=== PATIENT | male | born 1995 | race African-American/Black ===

== ENCOUNTER 2017-05-01 14:21 | Emergency (ER) | payer OTHER ==
[~2017-05-01] VITALS: Ht 188 cm; Wt 93.9 kg
[~2017-05-01 14:21] MED LIST: FLEXERIL10 MG PO; HYDROCODONE/APA1 TA1 PO
[2017-05-01 14:25] VITALS: BP 165/81
--- NOTE | 2017-05-01 14:44 | ED GENERAL ADULT ---
History of Present Illness General Chief Complaint: General Adult Stated Complaint: BONE IN CHEST ?STICKING OUT Source: patient, old records Exam Limitations: no limitations Vital Signs & Intake/Output Vital Signs & Intake/Output Vital Signs Date Time Temp Pulse Resp B/P B/P Pulse O2 O2 Flow FiO2 Mean Ox Delivery Rate 05/01 1425 98.5 96 18 165/81 97 Room Air Allergies Coded Allergies: NO KNOWN ALLERGIES (04/03/11) Reconcile Medications No Known Home Medications Triage Note: PT STATES HIS BREAST BONE STICKS OUT AND IT HURTS WHEN HE BREATHS. Triage Nurses Notes Reviewed? yes Onset: Gradual Duration: day(s): Timing: remote history Severity: moderate Modifying Factors: Worsens With: other (deep inspiration). HPI: 21-year-old male presents to emergency department complaining of any protrusion of his chest. Patient has had this chronically since childhood however for the past 3 days he notes increasing pain with inspiration. He has never seen a specialist for this. He does not that he has had x-rays and was told that this is "normal". He states that when he looses weight the protrusion becomes more prominent. He has never seen a specialist for this chronic issue. He also states that when he lifts weights and puts pressure on his chest it can be very uncomfortable for him. He denies fevers, chills, cough, hemoptysis, palpitations, recent illness. (QI KIRAN PA-C) Past History Travel History Traveled to [place] past 21 day No Medical History Any Pertinent Medical History? none Neurological: NONE EENT: NONE Cardiovascular: NONE Respiratory: NONE Gastrointestinal: NONE Hepatic: NONE Renal: NONE Musculoskeletal: NONE Psychiatric: NONE Endocrine: NONE Surgical History Surgical History: non-contributory Psychosocial History What is your primary language Divehi Tobacco Use: Never used ETOH Use: occasional use Illicit Drug Use: denies illicit drug use Family History Hx Contributory? No (QI KIRAN PA-C) Review of Systems Review of Systems Constitutional: Reports: no symptoms. EENTM: Reports: no symptoms. Respiratory: Reports: see HPI. Cardiovascular: Reports: no symptoms. GI: Reports: no symptoms. Genitourinary: Reports: no symptoms. Musculoskeletal: Reports: see HPI. Skin: Reports: no symptoms. Neurological/Psychological: Reports: no symptoms. Hematologic/Endocrine: Reports: no symptoms. Immunologic/Allergic: Reports: no symptoms. All Other Systems: Reviewed and Negative (QIANA TRAN,QI) Physical Exam Physical Exam General Appearance: well developed/nourished, no apparent distress, alert, awake Head: atraumatic, normal appearance Eyes: Bilateral: normal appearance. Ears, Nose, Throat: hearing grossly normal Neck: normal inspection, supple, full range of motion Respiratory: normal breath sounds, no respiratory distress, lungs clear, pectus carinatum present, tenderness to sternum with palpation Cardiovascular: regular rate/rhythm Back: normal inspection, normal range of motion, no vertebral tenderness Extremities: normal inspection, normal range of motion Neurologic/Psych: awake, alert, oriented x 3 Skin: intact, normal color, warm/dry Core Measures ACS in differential dx? No CVA/TIA Diagnosis: No Severe Sepsis Present: No Septic Shock Present: No (QI KIRAN PA-C) Progress Differential Diagnoses I considered the following diagnoses in my evaluation of the patient: [Sternum fracture, chostocondritis, rib fracture, pericarditis] Plan of Care: Pectus carinatum present on physical exam, this is been present for as long as patient can't remember, this is a chronic issue for this patient. Old records reviewed. The patient has never seen a specialist regarding this condition. He currently does not complain of any dyspnea or pain with deep inspiration, he complains of no chest pain. He is not hypoxic. He is requesting a note to return to work. The patient was given a referral for a cardiothoracic surgeon to further assess his chronic condition. He states he will call to make an appointment. He will return with any worsening symptoms or concerns. The patient is in agreement with the plan of care. The patient was discussed with Dr. Yu. Initial ED EKG: none (QIANA TRAN,QI) Departure Departure Disposition: HOME OR SELF CARE Condition: Stable Clinical Impression Primary Impression: Pectus carinatum Secondary Impressions: Sternum pain Referrals: IGNACIO ROE,PELON GAMA (PCP/Family) Additional Instructions: As discussed Follow-up with cardiothoracic surgeon, Dr. Mcdonough, to discuss options regarding your sternum, call to make an appointment. Return with any worsening symptoms or concerns including shortness of breath, chest pain, abdominal pain. Departure Forms: Customer Survey General Discharge Information Prescriptions: Current Visit Scripts No Known Home Medications (QI KIRAN PA-C) PA/FEED MANAGEMENT ADVISOR Co-Sign Statement Statement: ED Attending supervision documentation- [] I saw and evaluated the patient. I have also reviewed all the pertinent lab results and diagnostic results. I agree with the findings and the plan of care as documented in the PA's/FEED MANAGEMENT ADVISOR's documentation. [X] I have reviewed the ED Record and agree with the PA's/FEED MANAGEMENT ADVISOR's documentation. [] Additions or exceptions (if any) to the PAs/FEED MANAGEMENT ADVISOR's note and plan are summarized below: [] (DONG ROE,ABRIL Thurman) Critical Care Note Critical Care Note Critical Care Time: non-applicable (QI KIRAN PA-C)
== END 2017-05-01 15:17 ==
LOC: ERH 14:21
DX: Q67.7 Pectus carinatum (principal)

== ENCOUNTER 2018-05-10 03:05 | Emergency (ER) | payer SELFPAY ==
--- NOTE | 2018-05-10 03:08 | ED HAND/WRIST INJURY COMPLAINT ---
History of Present Illness General Chief Complaint: Laceration Procedure Stated Complaint: LAC TO LEFT ARM Source: patient, family, old records Exam Limitations: no limitations Vital Signs & Intake/Output Vital Signs & Intake/Output Vital Signs Date Time Temp Pulse Resp B/P B/P Pulse O2 O2 Flow FiO2 Mean Ox Delivery Rate 05/10 0505 98.0 68 18 130/66 99 Room Air 05/10 0425 97.9 74 16 132/68 99 Room Air 05/10 0324 98.2 80 18 134/76 99 Room Air Allergies Coded Allergies: NO KNOWN ALLERGIES (05/10/18) Reconcile Medications No Known Home Medications Triage Nurses Notes Reviewed? yes HPI: The patient was shutting his hallway door which has a glass pane in it. He accidentally put his left arm through the glass pane. Positive laceration. Patient is unsure when his last tetanus shot was. Pain is 10 out of 10 and is constant. There is no radiation. There are no aggravating or mitigating factors. Past History Travel History Traveled to [place] past 21 day No Medical History Any Pertinent Medical History? none Neurological: NONE EENT: NONE Cardiovascular: NONE Respiratory: NONE Gastrointestinal: NONE Hepatic: NONE Renal: NONE Musculoskeletal: NONE Psychiatric: NONE Endocrine: NONE Surgical History Surgical History: non-contributory Psychosocial History What is your primary language Sami Tobacco Use: Never used ETOH Use: occasional use Illicit Drug Use: denies illicit drug use Family History Hx Contributory? No Review of Systems Review of Systems Constitutional: Reports: no symptoms. Respiratory: Reports: no symptoms. Cardiovascular: Reports: no symptoms. GI: Reports: no symptoms. Musculoskeletal: Reports: see HPI. Skin: Reports: see HPI. Neurological/Psychological: Reports: no symptoms. Immunologic/Allergic: Reports: no symptoms. Physical Exam Physical Exam General Appearance: well developed/nourished, alert, moderate distress Head: atraumatic Eyes: Bilateral: PERRL, EOMI. Cardiovascular/Respiratory: normal breath sounds, normal peripheral pulses, regular rate/rhythm, no respiratory distress Forearm Left: DEEP LACERATION WITH MUSCLE INVOLVMENT Wrist Left: normal range of motion, normal inspection Hand Left: normal inspection, normal range of motion Hand Right: normal inspection, normal range of motion Neurologic/Tendon: tendon function deficit Comments: Normal sensation to his fingers. His fingers are held in a flexed position however he can extend and flex them again. Capillary refill is less than 2 seconds. Obvious muscle laceration. Progress Differential Diagnosis: DEEPLACERATION WITH MUSCLE INVOLVMENT Plan of Care: Orders Procedure Date/time Status Durable Medical Equipment 05/10 514 Active Current Medications Sig/Sree Start time Last Medication Dose Stop Time Status Admin Lactated Ringer's 1,000 ML ONCE ONE 05/10 430 UNVr 05/10 (Lactated Ringers) 05/10 1229 0427 Lidocaine/Epinephrine 20 ML ONCE ONE 05/10 430 UNVr 05/10 05/10 0431 0428 Ondansetron HCl 4 MG ONCE ONE 05/10 430 UNVr 05/10 (Zofran) 05/10 0431 0345 Diagnostic Imaging: Viewed by Me: Radiology Read. Discussed w/RAD: Radiology Read. Radiology Impression: PATIENT: AUGUSTUS PACE PRESENT AGE: 22 PATIENT ACCOUNT NO: [id number] : 95 LOCATION: [facility] ORDERING PHYSICIAN: Apolinar Yu MD SERVICE DATE: 05/10/18 EXAM TYPE: RAD - XRY-FOREARM, LEFT EXAMINATION: XR FOREARM, LEFT CLINICAL INFORMATION: Deep laceration from glass. COMPARISON: None TECHNIQUE: AP and lateral views of the left forearm were obtained. FINDINGS: There is diffuse soft tissue irregularity at the mid to distal forearm. Soft tissue gas present. No radiopaque foreign body. No acute fracture or cortical disruption. Alignment is anatomic at the wrist and elbow. IMPRESSION: Soft tissue irregularity at the mid to distal forearm consistent with the clinical history of laceration. No radiopaque foreign body or acute osseous abnormality. DICTATED BY: Chema Butts MD DATE/TIME DICTATED:05/10/18411 PROGRAM MANAGER RN:SANDY DATE/TIME TRANSCRIBED:05/10/18411 CONFIDENTIAL, DO NOT COPY WITHOUT APPROPRIATE AUTHORIZATION. <Electronically signed in Other Vendor System> SIGNED BY: Chema Butts MD 05/10/18418 Comments: DR. WAITE IS COMING IN TO EVALUATE Departure Departure Disposition: HOME OR SELF CARE Condition: Stable Clinical Impression Primary Impression: Laceration Referrals: Dean ROE,Saul Unknown Additional Instructions: FOLLOW UP WITH DR. WAITE ANDFOLLOW HIS RECOMMENDATONS REUTRN IF SYMPTOMS WORSEN OR FOR ANY CONCENRS Departure Forms: Customer Survey General Discharge Information Prescriptions: Current Visit Scripts Amoxicillin 1 TAB PO TID #30 TAB Oxycodone HCl/Acetaminophen (Percocet 5-325 MG Tablet) 1-2 TAB PO Q6P PRN PAIN #20 TAB
--- NOTE | 2018-05-10 04:19 | RADIOLOGY REPORT ---
EXAMINATION: XR FOREARM, LEFT CLINICAL INFORMATION: Deep laceration from glass. COMPARISON: None TECHNIQUE: AP and lateral views of the left forearm were obtained. FINDINGS: There is diffuse soft tissue irregularity at the mid to distal forearm. Soft tissue gas present. No radiopaque foreign body. No acute fracture or cortical disruption. Alignment is anatomic at the wrist and elbow. IMPRESSION: Soft tissue irregularity at the mid to distal forearm consistent with the clinical history of laceration. No radiopaque foreign body or acute osseous abnormality.
[2018-05-10 05:05] VITALS: BP 130/66
[2018-05-10] MEDS ORDERED: PERCOCET 5-3251 EACH PO (05:29)
[2018-05-10] MEDS ORDERED: AMOXICILLIN500 M3 PO (05:29)
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
--- NOTE | 2018-05-10 22:12 | Procedure ---
Minor Surgical Procedure Note Date of Procedure: 05/10/18 Procedure Note: PROCEDURE-LEFT FOREARM LACERATION REPAIR The procedure, risks, benefits, and alternative discussed with the patient. The risks discussed but not limited to included bleeding, infection, hematoma, seroma, pain, scarring, and need for further surgery. Knowing these risks the patient agreed to the procedure. Left forearm was prepped and draped in the usual sterile fashion. 20 cc of 1% lidocaine with epinephrine injected around the 12 cm open,volar wound site. Surgicel used for hemostasis of a small superficial arterial bleeder. Hand hold doppler used to assess signal of the left radial artery, ulnar artery, deep palmar arch, and digits. Good signal audible. Wound irrigated with normal saline. Exposed muscle and fascia noted. 4-0 vicryl used to reapproximate deep dermis an interrupted fashion. 4-0 nylon used to reapproximate skin edged in a running fashion. Bacitracin, sterile dressing, and volar splint applied. Post-procedure instructions provided verbally to the patient; elevate left upper extremity, keep splint dry, PO antibiotics, pain control, observe for increase pain, and Temp>101, follow-up within 1 week for wound check, recommend hand specialist for tendon repairs.
[2018-05-12] MEDS ORDERED: IBUPROFEN800 M1 PO (22:45)
== END 2018-05-10 05:41 ==
LOC: ERH 03:05
DX: S41.112A Laceration without foreign body of left upper arm, initial encounter (principal); W25.XXXA Contact with sharp glass, initial encounter; Y92.009 Unspecified place in unspecified non-institutional (private) residence as the place of occurrence of the external cause; Y93.9 Activity, unspecified
CPT/HCPCS: 73090-LT; 90471; 90714; 96374; 96375; J0690; J2405